=== PATIENT | female | born 1940 | race African-American/Black ===

== ENCOUNTER 2021-10-19 07:43 | Emergency (ER) | payer OTHER ==
[~2021-10-19] VITALS: Ht 165.1 cm; Wt 40.0 kg
[2021-10-19 07:46] VITALS: BP 130/60
== END 2021-10-19 10:06 ==
LOC: ER 07:43
DX: I46.9 Cardiac arrest, cause unspecified (principal); E05.90 Thyrotoxicosis, unspecified without thyrotoxic crisis or storm; Z66 Do not resuscitate
CPT/HCPCS: 99285